=== PATIENT | female | born 1985 | race Caucasian/White ===

== ENCOUNTER → 2020-05-02 11:30 | Outpatient (BNVA) | payer BC, SELFPAY | PROVIDERS: Visit Provider Advanced Practice Midwife | DX: Z76.89 Persons encountering health services in other specified circumstances (principal) ==

== ENCOUNTER 2020-05-03 08:26 | Outpatient (REF) | payer BC, SELFPAY ==
[2020-05-07 10:18] LABS: HPV mRNA E6/E7 rflx Not Detected (Not Detected)
== END 2020-05-03 08:27 | disposition home or self-care (01) ==
LOC: HO.LAB 08:26
PROVIDERS: Visit Provider Advanced Practice Midwife
DX: Z01.419 Encounter for gynecological examination (general) (routine) without abnormal findings (principal); R87.619 Unspecified abnormal cytological findings in specimens from cervix uteri
CPT/HCPCS: 87624; 88142

== ENCOUNTER 2021-07-10 08:24 | Outpatient (REF) | payer OTHER, SELFPAY ==
[2021-07-13 05:56] LABS: HPV mRNA E6/E7 rflx Not Detected (Not Detected)
== END 2021-07-10 08:25 | disposition home or self-care (01) ==
LOC: HO.LAB 08:24
PROVIDERS: Visit Provider Advanced Practice Midwife
DX: Z01.419 Encounter for gynecological examination (general) (routine) without abnormal findings (principal); Z11.51 Encounter for screening for human papillomavirus (HPV)
CPT/HCPCS: 87624; 88142